=== PATIENT | female | born 1955 | race Caucasian/White ===

== ENCOUNTER → 2016-08-22 | Outpatient (CLI) | payer BC | END | disposition home or self-care (01) | LOC: RAD.S 07:08 | DX: Z12.31 Encounter for screening mammogram for malignant neoplasm of breast (principal); R92.1 Mammographic calcification found on diagnostic imaging of breast ==

== ENCOUNTER 2016-11-01 03:50 | Emergency (ER) | payer BC ==
--- NOTE | 2016-11-01 19:12 | ER ---
ADMIT: 11/01/2016 RM/LOC: ER [facility] MR#: [id number] [id number] [address] [place] [address] Emergency Room Report SEX: F AGE: 61 : 1955 DATE: 11/01/2016 HISTORY OF PRESENT ILLNESS: The patient is a 61-year-old female with a past medical history of gastritis, recently diagnosed with diverticulitis yesterday. The patient came to the ER with left upper quadrant pain for 1 day, pain is intermittent and is crampy and is moderate to severe in severity. The patient already started ciprofloxacin and Flagyl p.o. The patient also complains of diarrhea for the last few days. The patient is nauseous, but did not vomit. PHYSICAL EXAMINATION: GENERAL: The patient is in moderate distress. VITAL SIGNS: Stable. The patient is afebrile. HEAD and NEC: Normal. CHEST: Clear bilaterally. HEART: Normal heart sounds. ABDOMEN: Soft without any tenderness. There is no CVA tenderness. There is no guarding or rebound in abdomen. The rest of the physical exam is noncontributory. EMERGENCY ROOM COURSE: The patient received IV fluids, normal saline 1 L bolus, Zofran 4 mg IV, morphine IV for pain control, and GI cocktail 30 mL p.o., and Protonix 40 mg IV. Lab works were noncontributory and negative. Pain was controlled. The patient was re-examined and has benign abdominal exam. The patient is asymptomatic and can follow up with the primary doctor as needed. Plan was discussed with the patient, she agreed upon it and the patient was discharged to home. Jarrell Callahan MD/ andres JOB #: [id number] CC: Jarrell Callahan MD, Attending Physician Frank Murphy MD, Family Physician
== END 2016-11-01 05:35 | disposition home or self-care (01) ==
LOC: ER 03:50
DX: R10.9 Unspecified abdominal pain (principal); E03.9 Hypothyroidism, unspecified; K21.9 Gastro-esophageal reflux disease without esophagitis; Z90.49 Acquired absence of other specified parts of digestive tract; Z90.710 Acquired absence of both cervix and uterus